=== PATIENT | female | born 1975 | race Asian ===

== ENCOUNTER 2019-05-24 03:09 | Emergency (ER) | payer SELFPAY ==
[~2019-05-24] VITALS: Ht 157.5 cm; Wt 78.9 kg
[2019-05-24] MEDS ORDERED: cloNIDine HCL 0.1 MG TAB PO ONE (03:30)
[2019-05-24 03:50] LABS: Basophils # (auto) 0 uL; Basophils % (auto) 0.7 % (0.0-2.0); Eosinophils # (auto) 0.2 uL; Eosinophils % (auto) 3.1 % (0.0-7.0); Hematocrit 39.9 % (36.0-46.0); Hemoglobin 12.7 g/dL (12.2-16.2); Lymphocytes # (auto) 1.6 uL; Lymphocytes % (auto) 21.4 % (10.0-50.0); Mean Corpuscular Hemoglobin 22.6 pg (28.0-32.0); Mean Corpuscular Hgb Conc. 31.9 g/dL (32.0-36.0); Mean Corpuscular Volume 70.7 fL (80.0-100.0); Monocytes # (auto) 0.5 uL; Monocytes % (auto) 6.6 % (0.0-12.0); Neutrophils % (auto) 68.2 % (37.0-80.0); Nucleated Red Blood Cells % 0.1 %; Platelet Count (auto) 268 10^3/uL (140-450); Red Blood Cells 5.64 10^6/uL (4.0-5.20); Red Cell Distribution Width 17.3 % (11.8-14.3); White Blood Cell 7.3 10^3/uL (4.4-10.8)
[2019-05-24 04:07] LABS: Alanine Aminotransferase 18 U/L (13-56); Albumin 3.5 g/dL (3.4-5.0); Anion Gap 11 (5-15); Blood Urea Nitrogen 18 mg/dL (7-18); Calcium 9.1 mg/dL (8.5-10.1); Carbon Dioxide 25 mmol/L (21-32); Chloride 100 mmol/L (98-107); Glucose 110 mg/dL (74-106); Magnesium 1.9 mg/dL (1.6-2.6); Potassium 3.4 mmol/L (3.5-5.1); Sodium 136 mmol/L (136-145)
[2019-05-24 04:13] LABS: Alkaline Phosphatase 52 U/L (45-117); Aspartate Aminotransferase 18 U/L (15-37); BUN/Creatinine Ratio 19.1; Bilirubin, Total 0.6 mg/dL (0.2-1.0); GFR African American 83 mL/min; GFR Non-African American 69 mL/min; Total Protein 8.1 g/dL (6.4-8.2)
[2019-05-24] MEDS ORDERED: KETOROLAC TROMETH 60MG/2ML VIAL IM ONE (05:15)
[2019-05-24] MEDS ORDERED: FUROSEMIDE 20 MG/2 ML VIAL IV ONE (06:30)
[2019-05-24] MEDS ORDERED: METOPROLOL TARTRATE 1MG/1ML-5ML VIAL IV ONE (06:30)
[2019-05-24] MEDS ORDERED: METOPROLOL TARTRATE 25 MG TAB PO ONE (06:45)
[2019-05-24] MEDS ORDERED: FUROSEMIDE 20 MG TAB PO ONE (06:45)
[2019-05-24 06:59] VITALS: BP 169/106
[2019-05-27] MEDS ORDERED: SPIR25TA88 PO (10:49)
[2019-05-27] MEDS ORDERED: FERR200T3 PO (10:50)
[2019-05-27] MEDS ORDERED: AML5T GT (10:50)
[2019-05-27] MEDS ORDERED: CAR125T BC (10:50)
== END 2019-05-24 07:08 | disposition home or self-care (01) ==
LOC: ER 03:11
DX: G47.10 Hypersomnia, unspecified (principal); M54.9 Dorsalgia, unspecified; I10 Essential (primary) hypertension
CPT/HCPCS: 36415; 80053; 83735; 84484; 85025; 93005; 96372; 99284; J1885

== ENCOUNTER 2019-05-24 17:10 | Inpatient (IN) | payer SELFPAY ==
[~2019-05-24] VITALS: Ht 157.5 cm; Wt 78.0 kg
[2019-05-24] MEDS ORDERED: NITROGLYCERIN 50MG/250ML 250 ML IV ONE (17:21)
[2019-05-24 17:49] LABS: Basophils # (auto) 0.1 uL; Monocytes # (auto) 0.9 uL; Monocytes % (auto) 9.3 % (0.0-12.0); Nucleated Red Blood Cells % 0.1 %; White Blood Cell 10.2 10^3/uL (4.4-10.8)
[2019-05-24 17:51] LABS: Basophils % (auto) 0.8 % (0.0-2.0); Eosinophils # (auto) 0.2 uL; Eosinophils % (auto) 2.3 % (0.0-7.0); Hemoglobin 12.5 g/dL (12.2-16.2); Lymphocytes # (auto) 3.2 uL; Lymphocytes % (auto) 31.2 % (10.0-50.0); Mean Corpuscular Hemoglobin 22.6 pg (28.0-32.0); Mean Corpuscular Hgb Conc. 32.1 g/dL (32.0-36.0); Mean Corpuscular Volume 70.3 fL (80.0-100.0); Neutrophils # (auto) 5.7 uL; Neutrophils % (auto) 56.4 % (37.0-80.0); Platelet Count (auto) 297 10^3/uL (140-450); Red Blood Cells 5.54 10^6/uL (4.0-5.20); Red Cell Distribution Width 17.4 % (11.8-14.3)
[2019-05-24 18:06] LABS: Albumin 3.8 g/dL (3.4-5.0); Anion Gap 10 (5-15); Calcium 8.5 mg/dL (8.5-10.1); Carbon Dioxide 27 mmol/L (21-32); Chloride 91 mmol/L (98-107); Glucose 92 mg/dL (74-106); INR < 0.93 (0.9-1.15); Partial Thromboplastin Time 30.1 sec (23.64-32.05); Sodium 128 mmol/L (136-145)
[2019-05-24 18:12] LABS: Alanine Aminotransferase 19 U/L (13-56); Alkaline Phosphatase 58 U/L (45-117); Aspartate Aminotransferase 14 U/L (15-37); BUN/Creatinine Ratio 14.9; Bilirubin, Total 0.3 mg/dL (0.2-1.0); Blood Urea Nitrogen 14 mg/dL (7-18); GFR African American 83 mL/min; GFR Non-African American 69 mL/min; Total Protein 8.3 g/dL (6.4-8.2)
[2019-05-24 18:17] LABS: Potassium 2.9 mmol/L (3.5-5.1)
[2019-05-24] MEDS ORDERED: POTASSIUM CHL 20 Meq TABLET PO ONE (18:30)
[2019-05-24] MEDS ORDERED: HYDROcodone-ACET 5/325MG TAB PO PRN (19:00)
[2019-05-24] MEDS ORDERED: MORPHINE SULF INJ 2 MG/ML SYRINGE 1ML IV PRN ×2 (19:00)
[2019-05-24] MEDS ORDERED: ONDANSETRON HCL 4 MG/2 ML VIAL IV PRN (19:00)
[2019-05-24] MEDS ORDERED: ACETAMINOPHEN 500 MG TAB PO PRN (19:00)
[2019-05-24] MEDS ORDERED: NITROGLYCERIN 0.4 MG SL TAB SL PRN (19:00)
[2019-05-24] MEDS ORDERED: cloNIDine HCL 0.1 MG TAB PO ONE (19:15)
[2019-05-24] MEDS ORDERED: MAGNESIUM SULFATE 1GM/100ML 100 ML IV ONE (19:15)
[2019-05-24] MEDS: METOPROLOL TARTRATE 50 MG TAB PO SCH (19:20)
[2019-05-24] MEDS: BENAZEPRIL HCL 10 MG TAB PO SCH (19:20)
[2019-05-24] MEDS: LABETALOL HCL 5 MG/ML ML 20ML VIAL IV PRN (21:34)
[2019-05-24 22:22] LABS: Urine Bacteria FEW /hpf (None Seen); Urine Blood Negative /uL (Negative); Urine Mucus FEW (None Seen); Urine Specific Gravity 1.005 (1.001-1.035); Urine WBC 25 /hpf (0 - 5)
[2019-05-25 06:39] LABS: Basophils # (auto) 0 uL; Basophils % (auto) 0.2 % (0.0-2.0); Eosinophils # (auto) 0.1 uL; Eosinophils % (auto) 0.9 % (0.0-7.0); Hematocrit 35.3 % (36.0-46.0); Hemoglobin 11.3 g/dL (12.2-16.2); Lymphocytes # (auto) 1.2 uL; Lymphocytes % (auto) 12.4 % (10.0-50.0); Mean Corpuscular Hemoglobin 22.6 pg (28.0-32.0); Mean Corpuscular Hgb Conc. 32.1 g/dL (32.0-36.0); Mean Corpuscular Volume 70.4 fL (80.0-100.0); Monocytes # (auto) 0.6 uL; Monocytes % (auto) 6.8 % (0.0-12.0); Neutrophils # (auto) 7.5 uL; Neutrophils % (auto) 79.7 % (37.0-80.0); Platelet Count (auto) 256 10^3/uL (140-450); Red Blood Cells 5.01 10^6/uL (4.0-5.20); Red Cell Distribution Width 17.2 % (11.8-14.3); White Blood Cell 9.4 10^3/uL (4.4-10.8)
[2019-05-25 06:41] LABS: Albumin 3.2 g/dL (3.4-5.0); BUN/Creatinine Ratio 15.5; Calcium 8.3 mg/dL (8.5-10.1); Potassium 3.7 mmol/L (3.5-5.1)
[2019-05-25 06:44] LABS: Bilirubin, Total 0.6 mg/dL (0.2-1.0); Total Protein 6.9 g/dL (6.4-8.2)
[2019-05-25 06:51] LABS: Magnesium 2.1 mg/dL (1.6-2.6)
[2019-05-25 09:33] VITALS: BP 138/91
[2019-05-25 10:00] VITALS: BP 138/91
[2019-05-25] MEDS: FAMOTIDINE 20 MG TAB PO SCH (11:32)
[2019-05-25] MEDS: BENAZEPRIL HCL 10 MG TAB PO SCH ×2 (11:32→21:04)
[2019-05-25] MEDS: METOPROLOL TARTRATE 50 MG TAB PO SCH ×2 (11:33→21:03)
--- NOTE | 2019-05-25 12:02 | NUR ---
RECEIVED PT FROM ER TO ROOM APPROX. 0920. A/O X 4. ORIENTED TO ROOM AND CALL LIGHT. VSS. ORDERS NOTED. DR OAKLEY ROUNDED ON PT.
[2019-05-25 12:18] LABS: % Iron Saturation 6.6 % (15-50)
[2019-05-25 12:50] VITALS: BP 160/94
[2019-05-25] MEDS: LABETALOL HCL 5 MG/ML ML 20ML VIAL IV PRN (13:10)
[2019-05-25 16:52] VITALS: BP 158/76
[2019-05-25] MEDS ORDERED: POTASSIUM CHL 20 Meq TABLET PO ONE (18:15)
--- NOTE | 2019-05-25 19:45 | NUR ---
Opening Shift Note: A&Ox4, resting in bed. Room air, pain level 0/10, and ambulates independently without assistive devices. Bed locked in lowest position, side rails up x2, and call light within reach. IV 20 g in right forearm IID inserted on 05/24/19. Skin intact. Patient will be NPO at 2200 for renal US and stress test in the am. POC discussed and questions answered. Pending test urine and urine sodium sample collection. Patient informed of urine test and will notify staff when sample is provided.
--- NOTE | 2019-05-25 20:29 | NUR ---
2nd IV for stress test: 22 g in left wrist started x1 attempt for pending stress test in am. patient tolerated well. Other IV is a 20 g in right forearm.
--- NOTE | 2019-05-25 21:07 | NUR ---
Held 2200 Metoprolol: Medication held for stress test in am.
[2019-05-25 22:00] VITALS: BP 159/86
--- NOTE | 2019-05-25 22:00 | NUR ---
NPO for renal ultrasound and stress test in am.
--- NOTE | 2019-05-26 04:00 | NUR ---
Urine sodium and test sample sent to lab via [employer] system.
[2019-05-26 05:00] VITALS: BP 146/77
[2019-05-26] MEDS ORDERED: ADENOSINE 66 MG in GIVE UN-DILUTED 0 ML IV STA (08:20)
[2019-05-26] MEDS ORDERED: HCTZ 25 MG TAB PO SCH (10:00)
--- NOTE | 2019-05-26 10:30 | NUR ---
patient was not available for 900 vitals
[2019-05-26 11:58] LABS: BUN/Creatinine Ratio 13.8; Calcium 9.1 mg/dL (8.5-10.1); Potassium 4.3 mmol/L (3.5-5.1)
[2019-05-26] MEDS: FAMOTIDINE 20 MG TAB PO SCH (12:07)
[2019-05-26] MEDS: BENAZEPRIL HCL 10 MG TAB PO SCH (12:08)
[2019-05-26] MEDS: METOPROLOL TARTRATE 50 MG TAB PO SCH (12:08)
[2019-05-26 12:10] VITALS: BP 167/106
--- NOTE | 2019-05-26 12:17 | NUR ---
PT OFF FLOOR FOR RENAL U/S AND RENAL DOPPLER, ALSO FOR STRESS TEST. RETURNED TO FLOOR WITHOUT INCIDENT, BP 167/106. AM B/P MEDS GIVEN. DENIES PAIN. WILL CONTINUE TO MONITOR.
[2019-05-26 16:48] VITALS: BP 173/118
[2019-05-26] MEDS: LABETALOL HCL 5 MG/ML ML 20ML VIAL IV PRN (16:57)
[2019-05-26 19:36] LABS: Free T3 3.22 pg/mL (2.3-4.2); Free T4 (Free Thyroxine) 1.66 ng/dL (0.89-1.76); T3 Total 0.85 ng/mL (0.60-1.81)
[2019-05-26] MEDS: PROPRANOLOL HCL 20 MG TAB PO SCH ×2 (20:00→22:35)
--- NOTE | 2019-05-26 20:00 | NUR ---
Opening Shift Note: A&Ox4, resting in bed. Room air, pain level 0/10, and ambulates independently without assistive devices. Bed locked in lowest position, side rails up x2, and call light within reach. IV 20 g in right forearm IID inserted on 05/24/19 and left wrist 22 g inserted on 05/25/19. Skin intact. POC discussed and questions answered. Will continue to round prn.
--- NOTE | 2019-05-26 21:44 | NUR ---
Big. PVCs nonsustained per tele bus driver/monitor. Patient is asymptomatic at this time and cardiology consult in place for big. PVCs.
[2019-05-26] MEDS: FERROUS SULFATE 325 MG TAB PO SCH (22:35)
[2019-05-27] MEDS: LABETALOL HCL 5 MG/ML ML 20ML VIAL IV PRN
--- NOTE | 2019-05-27 | NUR ---
High BP: BP was 196/118 and HR 68 after a total of 40mg of Inderal given at 2014 and 2229. 10 mg IV labatelol given per order SBP >150. Will recheck in one hour.
[2019-05-27 01:03] LABS: Protein, Urine 9.2 mg/dL (0.0-11.9)
--- NOTE | 2019-05-27 01:30 | NUR ---
Blood pressure recheck 215/98 in left arm. Morphine 1 mg given to help relax patient and page sent to rn on site hospitalist for additional BP medication. Labatelol not due until 0200.
[2019-05-27] MEDS ORDERED: hydrALAZINE HCL 20 MG/ML VL IV ONE (01:45)
--- NOTE | 2019-05-27 01:57 | NUR ---
New order per rn radiation oncology hospitalist: 10 mg of hydralazine IV once. Current BP 189/95 in left arm and HR 71. Will recheck in one hour.
[2019-05-27 03:00] VITALS: BP 110/71
--- NOTE | 2019-05-27 03:01 | NUR ---
BP recheck WNL: Current BP after 10 mg of hydralazine given IV 110/70. Will continue to closely monitor BP.
[2019-05-27 05:00] VITALS: BP 124/84
[2019-05-27] MEDS: FERROUS SULFATE 325 MG TAB PO SCH (05:59)
[2019-05-27] MEDS: PROPRANOLOL HCL 20 MG TAB PO SCH (06:00)
[2019-05-27 08:53] LABS: BUN/Creatinine Ratio 15.7; Potassium 3.8 mmol/L (3.5-5.1)
[2019-05-27 09:00] VITALS: BP 140/93
[2019-05-27] MEDS: FAMOTIDINE 20 MG TAB PO SCH (09:53)
[2019-05-27] MEDS ORDERED: BENAZEPRIL HCL 10 MG TAB PO SCH (10:00)
[2019-05-27] MEDS ORDERED: SPIRONOLACTONE 25 MG TAB PO ONE (10:45)
[2019-05-27] MEDS ORDERED: SPIR25TA88 PO ×2 (10:49)
[2019-05-27] MEDS ORDERED: CAR125T BC ×2 (10:50)
[2019-05-27] MEDS ORDERED: AML5T GT ×2 (10:50)
[2019-05-27] MEDS ORDERED: FERR200T3 PO ×2 (10:50)
[2019-05-27 11:12] VITALS: BP 140/93
--- NOTE | 2019-05-27 14:53 | NUR ---
DISCHARGE INSTRUCTIONS AND RX GIVEN TO PT. VERBALIZED UNDERSTANDING, ALL APPROPRIATE PAPERWORK SIGNED. PT DISCHARGED HOME AT THIS TIME, LEAVING FLOOR VIA WHEELCHAIR WITH FRIEND IN ATTENDANCE.
[2019-05-28] MEDS ORDERED: SPIRONOLACTONE 25 MG TAB PO SCH (10:00)
== END 2019-05-27 14:47 | disposition home or self-care (01) | DRG 305 ==
LOC: ER 17:10 → TELE 17:11 → TELE-WESTW 05-25 09:05
PROVIDERS: ADMIT Nurse Practitioner Acute Care; ATTEND Internal Medicine Nephrology
DX: I16.1 Hypertensive emergency (principal); E87.1 Hypo-osmolality and hyponatremia; N39.0 Urinary tract infection, site not specified; E66.9 Obesity, unspecified; I10 Essential (primary) hypertension; Z79.899 Other long term (current) drug therapy; Z82.49 Family history of ischemic heart disease and other diseases of the circulatory system; D50.9 Iron deficiency anemia, unspecified; R82.71 Bacteriuria
CPT/HCPCS: 36415; 71045; 76775; 78452; 80048; 80053; 81001; 81025; 82088; 82533; 82570; 82962; 83540; 83550; 83735; 83835; 83930; 83935; 84156; 84244; 84300; 84439; 84443; 84480; 84481; 84484; 85025; 85610; 85730; 86141; 93017; 93306; 99291; G0378; J0153